=== PATIENT | male | born 1985 | race Caucasian/White ===

== ENCOUNTER 2019-02-18 08:58 | Day surgery (SDC) | payer OTHER ==
[~2019-02-18] VITALS: Ht 188 cm; Wt 113.2 kg
[2019-02-18] MEDS ORDERED: ZYRTEC10 M2 PO (09:30)
[2019-02-18] MEDS ORDERED: LEVSOD100 PO (09:31)
--- NOTE | 2019-02-18 11:46 | NUR ---
02/18/19 1146 Gisella Corbett TISSEEL FIBRIN SEALANT MIXED AT 1110 AND USED AT 1140.
== END 2019-02-18 13:41 | disposition home or self-care (01) ==
LOC: ORSCSDS 08:58
PROVIDERS: Surgery
PROC: 0WUF0JZ Supplement Abdominal Wall with Synthetic Substitute, Open Approach (ICD-10-PCS; principal; 2019-02-18 10:15)
DX: K42.0 Umbilical hernia with obstruction, without gangrene (principal); E03.9 Hypothyroidism, unspecified; Z79.899 Other long term (current) drug therapy
CPT/HCPCS: A9270-GY; C1781; J0690; J2250; J2405; J2704; J3010; J7120

== ENCOUNTER → 2023-07-24 | Outpatient (CLI) | payer OTHER ==
[~2023-07-24] MED LIST: LEVSOD100 PO; ZYRTEC10 M2 PO
[2023-07-25 17:36] LABS: ERYTHROPOIETIN 9 mU/mL (4-27)
[2023-07-30 11:47] LABS: JAK2 QUAL MUTATION BY PCR Not Detected; JAK2 QUAL,SOURCE Whole Blood
[2023-08-01 09:34] LABS: JAK2 EX12, SOURCE Whole Blood; JAK2 EXON 12 MUTATN ANALYS PCR Not Detected
== END | disposition home or self-care (01) ==
LOC: LAB SHORT 15:51 → LAB 15:51
PROVIDERS: Registered Nurse Oncology
DX: D75.1 Secondary polycythemia (principal)
CPT/HCPCS: 81270; 81279; 82668